=== PATIENT | female | born 1935 | race Caucasian/White ===

== ENCOUNTER 2019-02-01 16:58 | Inpatient (IN) | payer MEDICARE, MEDICAID ==
[~2019-02-01] VITALS: Ht 167.6 cm; Wt 107.0 kg
[2019-02-01] MEDS ORDERED: MORPHINE SULFATE 4 MG/ML CPJ (NOT FOR IM USE) IV ONE (20:00)
[2019-02-01 20:08] LABS: BASOPHILS % 0.2 % (0.0-2.0); EOSINOPHILS % 0.1 % (0.0-5.0); HEMATOCRIT. 36.5 % (36.0-48.0); HEMOGLOBIN. 12.1 g/dL (12.0-16.0); LYMPHOCYTES % 12.4 % (20.0-50.0); MEAN CORPUSCULAR HEMOGLOBIN 32.2 pg (28.0-32.0); MEAN CORPUSCULAR VOLUME 96.9 fL (81.0-99.0); MEAN PLATELET VOLUME 9.8 fl (7.4-10.4); NEUTROPHILS % 81.3 % (40.0-76.0); PLATELET 138 x1000/uL (130-400); RED BLOOD CELL COUNT 3.76 mill/uL (4.2-5.4); RED CELL DISTRIBUTION WIDTH 15.6 % (11.6-14.6)
[2019-02-01 20:12] LABS: CHLORIDE 105 mEq/L (98-107); PROTHROMBIN TIME 10.4 sec (9.1-11.1)
[2019-02-01] MEDS ORDERED: ONDANSETRON HCL 4MG/2ML INJ IV PRN (22:00)
[2019-02-01] MEDS ORDERED: DEXTROSE 50% WATER 50ML SYRINGE IV PRN (22:00)
[2019-02-01] MEDS ORDERED: ACETAMINOPHEN 325MG TABLET PO PRN (22:00)
[2019-02-01 23:30] VITALS: BP 105/51
[2019-02-02] VITALS: BP 103/51
[2019-02-02] MEDS: HYDROCODONE/ACETAMINOPHEN 5/325MG TABLET PO PRN ×2 (00:53→06:08)
[2019-02-02 04:00] VITALS: BP 118/51
[2019-02-02] MEDS: BLOOD SUGAR DIAGNOSTIC STRIP TEST SCH ×4 (06:06→22:15)
[2019-02-02] MEDS ORDERED: DEXT 5%/0.9% NACL 1,000 ML IV SCH (06:15)
[2019-02-02 06:50] LABS: BASOPHILS % 0.2 % (0.0-2.0); HEMATOCRIT. 32.5 % (36.0-48.0); HEMOGLOBIN. 10.9 g/dL (12.0-16.0); LYMPHOCYTES % 16.8 % (20.0-50.0); MEAN CORPUSCULAR HEMOGLOBIN 32.7 pg (28.0-32.0); MEAN CORPUSCULAR VOLUME 97.7 fL (81.0-99.0); MEAN PLATELET VOLUME 9.9 fl (7.4-10.4); MONOCYTES % 7.8 % (2.0-8.0); NEUTROPHILS % 75.2 % (40.0-76.0); PLATELET 124 x1000/uL (130-400); RED BLOOD CELL COUNT 3.32 mill/uL (4.2-5.4); RED CELL DISTRIBUTION WIDTH 15.5 % (11.6-14.6)
[2019-02-02] MEDS: DEXT 5%/0.45% NACL 1000ML 1,000 ML IV SCH ×2 (06:50→16:43)
[2019-02-02] MEDS: INSULIN LISPRO 100 UNITS/ML SUBCUT SCH ×4 (07:42→21:00)
[2019-02-02 08:00] VITALS: BP 113/75
[2019-02-02] MEDS: MORPHINE SULFATE 4 MG/ML CPJ (NOT FOR IM USE) IV PRN ×3 (11:59→22:23)
[2019-02-02 12:00] VITALS: BP 112/53
[2019-02-02 15:02] LABS: CLARITY URINE CLOUDY (CLEAR); COLOR URINE YELLOW (YELLOW); KETONES URINE NEGATIVE (NEGATIVE); LEUKOCYTE ESTERASE URINE 3+ (NEGATIVE); NITRITE URINE NEGATIVE (NEGATIVE); OCCULT BLOOD URINE NEGATIVE (NEGATIVE); PH URINE >=9.0 (4.5-8.0); PROTEIN URINE 2+ (NEGATIVE); SPECIFIC GRAVITY URINE 1.012 (1.005-1.030); UROBILINOGEN URINE 0.2 E.U./dL (0.2-1.0)
[2019-02-02] MEDS ORDERED: DIPHENHYDRAMINE 50MG/ML VIAL IV PRN (15:30)
[2019-02-02] MEDS ORDERED: HYDRALAZINE 20MG/ML VIAL IV PRN (15:30)
[2019-02-02 16:00] VITALS: BP 124/54
[2019-02-02 20:00] VITALS: BP 100/58
[2019-02-03] VITALS: BP 105/60
[2019-02-03 04:00] VITALS: BP 114/49
[2019-02-03] MEDS: MORPHINE SULFATE 4 MG/ML CPJ (NOT FOR IM USE) IV PRN ×3 (04:18→12:28)
[2019-02-03] MEDS: DEXT 5%/0.45% NACL 1000ML 1,000 ML IV SCH ×2 (04:20→12:45)
[2019-02-03 07:10] LABS: HEMATOCRIT 28.4 % (36.0-48.0); HEMOGLOBIN 9.4 g/dL (12.0-16.0); MEAN CORPUSCULAR HEMOGLOBIN 32.8 pg (28.0-32.0); MEAN CORPUSCULAR VOLUME 99.4 fL (81.0-99.0); PLATELET 113 x1000/uL (130-400); RED BLOOD CELL COUNT 2.86 mill/uL (4.2-5.4); RED CELL DISTRIBUTION WIDTH 15.8 % (11.6-14.6)
[2019-02-03 07:23] LABS: HEPATITIS B SURFACE ANTIGEN NEGATIVE
[2019-02-03] MEDS: BLOOD SUGAR DIAGNOSTIC STRIP TEST SCH ×3 (07:26→17:40)
[2019-02-03] MEDS: INSULIN LISPRO 100 UNITS/ML SUBCUT SCH ×3 (07:26→18:10)
[2019-02-03 07:31] LABS: CHLORIDE 103 mEq/L (98-107)
[2019-02-03 07:53] LABS: HEPATITIS A AB IGM NEGATIVE (NEGATIVE)
[2019-02-03 07:55] LABS: LDL CHOLESTEROL 79 mg/dL (5-100)
[2019-02-03 07:56] LABS: HDL CHOLESTEROL 35 mg/dL (40-59)
[2019-02-03 07:57] LABS: T4 FREE 1.41 ng/dL (0.76-1.46)
[2019-02-03 08:00] VITALS: BP 125/55
[2019-02-03 12:00] VITALS: BP 130/62
[2019-02-03] MEDS ORDERED: BUPIVACAINE HCL/PF 0.25% (2.5MG/ML) 10ML ONE (13:59)
[2019-02-03] MEDS ORDERED: BACITRACIN 15GM TUBE TOP ONE (14:00)
[2019-02-03] MEDS ORDERED: VANCOMYCIN HCL 500 MG/VIAL ONE ×2 (14:00→17:42)
[2019-02-03] MEDS: LEVOFLOXACIN 250MG PREMIX 50 ML IV SCH (15:45)
[2019-02-03 16:00] VITALS: BP 114/50
[2019-02-03] MEDS ORDERED: MIDAZOLAM HCL 2 MG/2 ML VIAL ONE (16:20)
[2019-02-03] MEDS ORDERED: FENTANYL CITRATE/PF 50MCG/ML 2ML VIAL ONE ×2 (16:20→17:45)
[2019-02-03] MEDS ORDERED: PROPOFOL 200MG/20ML VIAL IV ONE (16:20)
[2019-02-03] MEDS ORDERED: BUPIVACAINE HCL 0.5% (5MG/ML) 50ML ONE ×2 (16:35→19:50)
[2019-02-03] MEDS ORDERED: BUPIVACAINE HCL/EPINEPHRINE 0.5%/0.0005 30ML ONE (16:49)
[2019-02-03] MEDS ORDERED: LIDOCAINE HCL/EPINEPHRINE 1%-EPI 1:100,000 20 ML VIAL ONE (16:50)
[2019-02-03] MEDS ORDERED: ROCURONIUM BROMIDE 10MG/ML VIAL 5ML IV ONE (17:08)
[2019-02-03] MEDS ORDERED: GLYCOPYRROLATE 0.2 MG/ML 2ML VIAL ONE ×2 (17:30→20:37)
[2019-02-03] MEDS ORDERED: TRANEXAMIC ACID 1,000 MG in SODIUM CHLORIDE 0.9% 100 ML IV NR (17:45)
[2019-02-03] MEDS ORDERED: NEOSTIGMINE METHYLSULFATE 1MG/ML 10 ML VIAL ONE (19:39)
[2019-02-03] MEDS ORDERED: CEFAZOLIN 1000MG PREMIX 50 ML IV SCH (20:15)
[2019-02-03] MEDS ORDERED: HYDROMORPHONE HCL/PF 2MG/ML CPJ IV PRN ×2 (20:45)
[2019-02-03] MEDS ORDERED: ONDANSETRON HCL 4MG/2ML INJ IV PRN (20:45)
[2019-02-03 22:18] LABS: BASOPHILS % 0.4 % (0.0-2.0); EOSINOPHILS % 0.2 % (0.0-5.0); HEMATOCRIT. 31.2 % (36.0-48.0); HEMOGLOBIN. 9.9 g/dL (12.0-16.0); MEAN CORPUSCULAR HEMOGLOBIN 32.7 pg (28.0-32.0); MEAN CORPUSCULAR VOLUME 102.9 fL (81.0-99.0); MEAN PLATELET VOLUME 10.1 fl (7.4-10.4); MONOCYTES % 12.6 % (2.0-8.0); NEUTROPHILS % 72.8 % (40.0-76.0); PLATELET 110 x1000/uL (130-400); RED BLOOD CELL COUNT 3.03 mill/uL (4.2-5.4); RED CELL DISTRIBUTION WIDTH 16.2 % (11.6-14.6)
[2019-02-03 22:25] LABS: CHLORIDE 110 mEq/L (98-107)
[2019-02-03] MEDS ORDERED: CALCIUM CHLORIDE 1,000 MG in DEXT 5% WATER 90 ML IV NR (23:45)
[2019-02-04] VITALS (101 sets, daily range): BP systolic 71–169; BP diastolic 27–112
[2019-02-04] MEDS: INSULIN LISPRO 100 UNITS/ML SUBCUT SCH ×5 (00:23→21:23)
[2019-02-04] MEDS: BLOOD SUGAR DIAGNOSTIC STRIP TEST SCH ×5 (00:24→21:00)
[2019-02-04] MEDS: ACETAMINOPHEN 500MG TABLET PO SCH ×4 (00:24→21:25)
[2019-02-04] MEDS: DEXT 5%/0.45% NACL 1000ML 1,000 ML IV SCH ×2 (00:25→08:45)
[2019-02-04] MEDS: PHENYLEPHRINE 40 MG in DEXT 5% WATER 246 ML IV PRN ×4 (00:26→21:24)
[2019-02-04] MEDS: MORPHINE SULFATE 4 MG/ML CPJ (NOT FOR IM USE) IV PRN ×2 (02:21→17:08)
[2019-02-04 05:30] LABS: CHLORIDE 110 mEq/L (98-107)
[2019-02-04 05:35] LABS: HEMATOCRIT. 28.6 % (36.0-48.0); HEMOGLOBIN. 9.4 g/dL (12.0-16.0); MEAN CORPUSCULAR HEMOGLOBIN 32.6 pg (28.0-32.0); MEAN CORPUSCULAR VOLUME 99.4 fL (81.0-99.0); MEAN PLATELET VOLUME 9.8 fl (7.4-10.4); PLATELET 132 x1000/uL (130-400); RED BLOOD CELL COUNT 2.88 mill/uL (4.2-5.4); RED CELL DISTRIBUTION WIDTH 15.5 % (11.6-14.6)
[2019-02-04] MEDS: CEFAZOLIN 1000MG PREMIX 50 ML IV SCH ×2 (05:55→17:41)
[2019-02-04 07:17] LABS: PLATELET ESTIMATE NORMAL
[2019-02-04] MEDS ORDERED: SODIUM CHLORIDE 0.9% 500 ML IV SCH (08:30)
[2019-02-04] MEDS ORDERED: NOREPINEPHRINE 8 MG in DEXT 5% WATER 242 ML IV PRN (09:00)
[2019-02-04] MEDS ORDERED: HYDROCODONE/APAP 7.5/325MG 1 TAB TABLET PO PRN (11:45)
[2019-02-04 14:24] LABS: CLARITY URINE CLOUDY (CLEAR); COLOR URINE YELLOW (YELLOW); KETONES URINE NEGATIVE (NEGATIVE); LEUKOCYTE ESTERASE URINE TRACE (NEGATIVE); NITRITE URINE NEGATIVE (NEGATIVE); OCCULT BLOOD URINE 2+ (NEGATIVE); PROTEIN URINE 3+ (NEGATIVE); SPECIFIC GRAVITY URINE 1.014 (1.005-1.030); UROBILINOGEN URINE 0.2 E.U./dL (0.2-1.0)
[2019-02-04] MEDS: LEVOFLOXACIN 250MG PREMIX 50 ML IV SCH (15:41)
[2019-02-04 15:55] LABS: HEMATOCRIT. 28.6 % (36.0-48.0); HEMOGLOBIN. 9.2 g/dL (12.0-16.0); MEAN CORPUSCULAR HEMOGLOBIN 32.3 pg (28.0-32.0); MEAN CORPUSCULAR VOLUME 99.9 fL (81.0-99.0); MEAN PLATELET VOLUME 9.9 fl (7.4-10.4); PLATELET 130 x1000/uL (130-400); RED BLOOD CELL COUNT 2.86 mill/uL (4.2-5.4)
[2019-02-04 16:28] LABS: PLATELET ESTIMATE NORMAL
[2019-02-04] MEDS ORDERED: FUROSEMIDE 40MG/4ML VIAL IVP SCH (20:15)
[2019-02-04] MEDS: DEXT 5%/0.9% NACL 1,000 ML IV SCH (21:26)
[2019-02-04] MEDS ORDERED: SODIUM CHLORIDE 0.9% 500 ML IV ONE (22:00)
[2019-02-05] VITALS (95 sets, daily range): BP systolic 73–145; BP diastolic 32–80
[2019-02-05] MEDS: PHENYLEPHRINE 80 MG in DEXT 5% WATER 492 ML IV PRN ×2 (02:29→13:26)
[2019-02-05] MEDS: CEFAZOLIN 1000MG PREMIX 50 ML IV SCH ×2 (05:15→16:31)
[2019-02-05] MEDS: ACETAMINOPHEN 500MG TABLET PO SCH ×3 (05:15→21:12)
[2019-02-05 05:42] LABS: BASOPHILS % 0.2 % (0.0-2.0); HEMATOCRIT. 26.8 % (36.0-48.0); HEMOGLOBIN. 8.7 g/dL (12.0-16.0); LYMPHOCYTES % 8.8 % (20.0-50.0); MEAN CORPUSCULAR HEMOGLOBIN 32.2 pg (28.0-32.0); MEAN CORPUSCULAR VOLUME 99.1 fL (81.0-99.0); MEAN PLATELET VOLUME 9.5 fl (7.4-10.4); MONOCYTES % 6.2 % (2.0-8.0); NEUTROPHILS % 84.8 % (40.0-76.0); PLATELET 101 x1000/uL (130-400); RED CELL DISTRIBUTION WIDTH 15.5 % (11.6-14.6)
[2019-02-05] MEDS: BLOOD SUGAR DIAGNOSTIC STRIP TEST SCH ×4 (06:40→21:11)
[2019-02-05] MEDS: INSULIN LISPRO 100 UNITS/ML SUBCUT SCH ×4 (06:41→21:00)
[2019-02-05] MEDS: DEXT 5%/0.9% NACL 1,000 ML IV SCH ×2 (07:44→18:36)
[2019-02-05] MEDS ORDERED: CALCIUM CHLORIDE 1,000 MG in DEXT 5% WATER 90 ML IV NR (11:00)
[2019-02-05] MEDS ORDERED: LIDOCAINE HCL/PF 1% 2ML VIAL ONE (14:38)
[2019-02-05 15:16] LABS: BG BASE EXCESS -10.5 mmol/L (-2.0-2.0); BG CARBOXYHEMOGLOBIN 0.7 % (0.5-1.5); BG DEOXYHEMOGLOBIN 6.3 % (0.0-5.0); BG FRACTION INSPIRED OXYGEN 21; BG HCO3 ACT 15.2 mmol/L (22.0-26.0); BG METHEMOGLOBIN 0.3 % (0.0-1.5); BG OXYGEN SATURATION 93.6 % (92.0-98.5); BG OXYHEMOGLOBIN 92.7 % (94.0-97.0); BG PCO2 32.5 mmHg (35.0-45.0); BG PH 7.287 (7.350-7.450); BG PO2 69.4 mmHg (75.0-100.0); BG SAMPLE SITE RIGHT RADIAL; BG TOTAL HEMOGLOBIN 8.3 g/dL (12.0-18.0); BG VENT MODE ROOM AIR
[2019-02-05] MEDS ORDERED: PHENYLEPHRINE 80 MG in SODIUM CHLORIDE 0.9% 492 ML IV PRN (17:00)
[2019-02-05] MEDS ORDERED: MORPHINE SULFATE 4 MG/ML CPJ (NOT FOR IM USE) IV PRN (18:00)
[2019-02-05] MEDS: PHENYLEPHRINE 80 MG in SODIUM CHLORIDE 0.9% 492 ML IV PRN (18:39)
[2019-02-05] MEDS ORDERED: EPOETIN ALFA 10000UNITS/ML VIAL SUBCUT NR (21:00)
[2019-02-06] VITALS (49 sets, daily range): BP systolic 79–159; BP diastolic 44–94
[2019-02-06] MEDS: DEXT 5%/0.9% NACL 1,000 ML IV SCH (03:35)
[2019-02-06 06:05] LABS: HEMOGLOBIN 8.4 g/dL (12.0-16.0); MEAN CORPUSCULAR VOLUME 101.5 fL (81.0-99.0); PLATELET 74 x1000/uL (130-400); RED BLOOD CELL COUNT 2.56 mill/uL (4.2-5.4); RED CELL DISTRIBUTION WIDTH 16.5 % (11.6-14.6)
[2019-02-06] MEDS: ACETAMINOPHEN 500MG TABLET PO SCH ×3 (06:21→21:54)
[2019-02-06] MEDS: CEFAZOLIN 1000MG PREMIX 50 ML IV SCH (06:21)
[2019-02-06] MEDS: BLOOD SUGAR DIAGNOSTIC STRIP TEST SCH ×4 (06:57→20:14)
[2019-02-06] MEDS: INSULIN LISPRO 100 UNITS/ML SUBCUT SCH ×4 (06:58→20:14)
[2019-02-06] MEDS: PHENYLEPHRINE 80 MG in SODIUM CHLORIDE 0.9% 492 ML IV PRN (10:11)
[2019-02-06] MEDS: LEVOFLOXACIN 250MG PREMIX 50 ML IV SCH (10:34)
[2019-02-06] MEDS: SODIUM BICARBONATE 100 MEQ in SODIUM CHLORIDE 0.45% 1,000 ML IV SCH (12:37)
[2019-02-07] VITALS (14 sets, daily range): BP systolic 94–143; BP diastolic 46–77
[2019-02-07] MEDS: SODIUM BICARBONATE 100 MEQ in SODIUM CHLORIDE 0.45% 1,000 ML IV SCH (02:11)
[2019-02-07 05:41] LABS: HEMATOCRIT 23.8 % (36.0-48.0); MEAN CORPUSCULAR HEMOGLOBIN 32.8 pg (28.0-32.0); MEAN CORPUSCULAR VOLUME 98.4 fL (81.0-99.0); PLATELET 69 x1000/uL (130-400); RED BLOOD CELL COUNT 2.42 mill/uL (4.2-5.4); RED CELL DISTRIBUTION WIDTH 15.7 % (11.6-14.6)
[2019-02-07 05:57] LABS: CHLORIDE 111 mEq/L (98-107)
[2019-02-07] MEDS: ACETAMINOPHEN 500MG TABLET PO SCH ×3 (06:00→22:00)
[2019-02-07] MEDS: BLOOD SUGAR DIAGNOSTIC STRIP TEST SCH ×4 (06:44→20:54)
[2019-02-07] MEDS: INSULIN LISPRO 100 UNITS/ML SUBCUT SCH ×4 (07:20→20:54)
[2019-02-07] MEDS ORDERED: BISACODYL 10MG SUPP PR NR (09:45)
[2019-02-07 12:42] LABS: BG BASE EXCESS -5.1 mmol/L (-2.0-2.0); BG CARBOXYHEMOGLOBIN 0.8 % (0.5-1.5); BG DEOXYHEMOGLOBIN 5.1 % (0.0-5.0); BG FRACTION INSPIRED OXYGEN 21; BG HCO3 ACT 19.4 mmol/L (22.0-26.0); BG METHEMOGLOBIN 0.3 % (0.0-1.5); BG OXYGEN SATURATION 94.8 % (92.0-98.5); BG OXYHEMOGLOBIN 93.8 % (94.0-97.0); BG PCO2 33.6 mmHg (35.0-45.0); BG PO2 77.8 mmHg (75.0-100.0); BG SAMPLE SITE RIGHT RADIAL; BG TOTAL HEMOGLOBIN 8.2 g/dL (12.0-18.0); BG VENT MODE ROOM AIR
[2019-02-07] MEDS: SODIUM BICARBONATE 650 MG TABLET PO SCH ×2 (14:00→22:00)
[2019-02-07] MEDS: SODIUM CHLORIDE 0.45% 1,000 ML IV SCH (16:08)
[2019-02-07 17:12] LABS: HEMATOCRIT 25.3 % (36.0-48.0); HEMOGLOBIN 8.6 g/dL (12.0-16.0)
[2019-02-08] VITALS (12 sets, daily range): BP systolic 130–151; BP diastolic 56–86
[2019-02-08] MEDS: SODIUM BICARBONATE 650 MG TABLET PO SCH ×3 (06:00→21:45)
[2019-02-08] MEDS: ACETAMINOPHEN 500MG TABLET PO SCH ×3 (06:00→21:45)
[2019-02-08] MEDS: BLOOD SUGAR DIAGNOSTIC STRIP TEST SCH ×4 (06:15→20:52)
[2019-02-08 07:18] LABS: HEMOGLOBIN 8.4 g/dL (12.0-16.0); MEAN CORPUSCULAR HEMOGLOBIN 32.7 pg (28.0-32.0); MEAN CORPUSCULAR VOLUME 97.5 fL (81.0-99.0); PLATELET 67 x1000/uL (130-400); RED BLOOD CELL COUNT 2.57 mill/uL (4.2-5.4); RED CELL DISTRIBUTION WIDTH 15.7 % (11.6-14.6)
[2019-02-08] MEDS: INSULIN LISPRO 100 UNITS/ML SUBCUT SCH ×4 (07:20→20:52)
[2019-02-08] MEDS: LEVOFLOXACIN 250MG PREMIX 50 ML IV SCH (11:57)
[2019-02-08] MEDS: SODIUM CHLORIDE 0.45% 1,000 ML IV SCH (12:01)
[2019-02-08] MEDS ORDERED: HYDROCODONE/ACETAMINOPHEN 5/325MG TABLET PO PRN (13:45)
[2019-02-09] VITALS (12 sets, daily range): BP systolic 125–150; BP diastolic 63–102
[2019-02-09] MEDS: SODIUM BICARBONATE 650 MG TABLET PO SCH ×3 (06:42→21:35)
[2019-02-09] MEDS: ACETAMINOPHEN 500MG TABLET PO SCH ×3 (06:42→21:35)
[2019-02-09] MEDS: BLOOD SUGAR DIAGNOSTIC STRIP TEST SCH ×4 (06:51→21:01)
[2019-02-09] MEDS: SODIUM CHLORIDE 0.45% 1,000 ML IV SCH (06:51)
[2019-02-09] MEDS: INSULIN LISPRO 100 UNITS/ML SUBCUT SCH ×4 (07:20→21:00)
[2019-02-09] MEDS ORDERED: FUROSEMIDE 20MG/2ML VIAL IVP SCH (14:45)
[2019-02-09] MEDS: APIXABAN 2.5 MG TABLET PO SCH (21:18)
[2019-02-10] VITALS (23 sets, daily range): BP systolic 102–185; BP diastolic 30–88
[2019-02-10] MEDS: SODIUM CHLORIDE 0.45% 1,000 ML IV SCH (05:30)
[2019-02-10] MEDS: ACETAMINOPHEN 500MG TABLET PO SCH ×3 (06:17→18:07)
[2019-02-10] MEDS: SODIUM BICARBONATE 650 MG TABLET PO SCH ×2 (06:17→15:00)
[2019-02-10] MEDS: BLOOD SUGAR DIAGNOSTIC STRIP TEST SCH ×3 (07:02→16:50)
[2019-02-10 07:04] LABS: HEMATOCRIT 26.4 % (36.0-48.0); HEMOGLOBIN 8.8 g/dL (12.0-16.0); MEAN CORPUSCULAR HEMOGLOBIN 32.6 pg (28.0-32.0); MEAN CORPUSCULAR VOLUME 98.1 fL (81.0-99.0); PLATELET 101 x1000/uL (130-400); RED BLOOD CELL COUNT 2.69 mill/uL (4.2-5.4); RED CELL DISTRIBUTION WIDTH 15.9 % (11.6-14.6)
[2019-02-10] MEDS: INSULIN LISPRO 100 UNITS/ML SUBCUT SCH ×3 (07:20→17:20)
[2019-02-10] MEDS: APIXABAN 2.5 MG TABLET PO SCH ×2 (09:50→18:06)
[2019-02-10] MEDS: LEVOFLOXACIN 250MG PREMIX 50 ML IV SCH (12:39)
[2019-02-10] MEDS ORDERED: SODIUM BICARBONATE 650 MG TABLET PO SCH (22:00)
== END 2019-02-10 21:10 | disposition home health service (06) | DRG 853 ==
LOC: ER 16:58 → ENRESERV 20:22 → 6EST 21:18 → EDBEDREQTM 21:22 → EDBEDREQ 21:22 → 7WST 02-02 11:30 → MICUSO 02-03 23:49 → 3WST 02-07 05:45
PROVIDERS: ADMIT Internal Medicine; ATTEND Internal Medicine
PROC: 0QSC04Z Reposition Left Lower Femur with Internal Fixation Device, Open Approach (ICD-10-PCS; principal; 2019-02-03)
PROC: 0QUC0KZ Supplement Left Lower Femur with Nonautologous Tissue Substitute, Open Approach (ICD-10-PCS; 2019-02-03)
PROC: 02HV33Z Insertion of Infusion Device into Superior Vena Cava, Percutaneous Approach (ICD-10-PCS; 2019-02-04)
PROC: B548ZZA Ultrasonography of Superior Vena Cava, Guidance (ICD-10-PCS; 2019-02-04)
DX: A41.9 Sepsis, unspecified organism (principal); S72.002A Fracture of unspecified part of neck of left femur, initial encounter for closed fracture; N17.0 Acute kidney failure with tubular necrosis; M97.02XA Periprosthetic fracture around internal prosthetic left hip joint, initial encounter; N39.0 Urinary tract infection, site not specified; I48.92 Unspecified atrial flutter; R57.9 Shock, unspecified; E87.1 Hypo-osmolality and hyponatremia; K56.699 Other intestinal obstruction unspecified as to partial versus complete obstruction; I82.621 Acute embolism and thrombosis of deep veins of right upper extremity; N18.2 Chronic kidney disease, stage 2 (mild); E11.65 Type 2 diabetes mellitus with hyperglycemia; E66.01 Morbid (severe) obesity due to excess calories; D69.6 Thrombocytopenia, unspecified; D64.9 Anemia, unspecified; I12.9 Hypertensive chronic kidney disease with stage 1 through stage 4 chronic kidney disease, or unspecified chronic kidney disease; I95.81 Postprocedural hypotension; K72.90 Hepatic failure, unspecified without coma; F03.90 Unspecified dementia, unspecified severity, without behavioral disturbance, psychotic disturbance, mood disturbance, and anxiety; E11.22 Type 2 diabetes mellitus with diabetic chronic kidney disease; I07.1 Rheumatic tricuspid insufficiency; Z96.642 Presence of left artificial hip joint; R16.0 Hepatomegaly, not elsewhere classified; I27.20 Pulmonary hypertension, unspecified; I48.91 Unspecified atrial fibrillation; K74.60 Unspecified cirrhosis of liver; W10.8XXA Fall (on) (from) other stairs and steps, initial encounter; Y93.89 Activity, other specified; Y92.89 Other specified places as the place of occurrence of the external cause; Y99.8 Other external cause status; Z85.3 Personal history of malignant neoplasm of breast; Z79.899 Other long term (current) drug therapy
CPT/HCPCS: 36415; 36569; 36600; 71045; 73502; 73552; 74018; 74176; 76000; 76700; 76937; 80048; 80061; 80076; 82375; 82570; 82805; 82962; 83036; 84300; 84439; 84443; 85014; 85018; 85027; 86705; 86709; 86803; 86850; 86900; 86920; 87340; 93005; 93306; 93970; 96374; 96376; 97110; 97163; 97166; 97530; 99285; A6261; C1713; C1725; J0171; J0690; J0885; J1815; J1940; J1956; J2250; J2270; J2370; J2704; J2710; J3010; J3370; J3490; J7040; J7042; J7050; J7060; A4315